=== PATIENT | male | born 1960 | race Caucasian/White ===

== ENCOUNTER → 2016-11-29 | Outpatient (CLI) | payer OTHER | END | disposition home or self-care (01) | LOC: MW.CHUR 11:39 | PROVIDERS: ATTEND Urology | DX: N40.1 Benign prostatic hyperplasia with lower urinary tract symptoms (principal); R33.8 Other retention of urine | CPT/HCPCS: 36415; 51798; 81001; 84153 ==

== ENCOUNTER 2016-12-08 10:54 | Day surgery (SDC) | payer OTHER ==
[~2016-12-08 10:54] MED LIST: Lactated Ringers 1,000 ML IV SCH; Midazolam 1 MG/ML 2 ML SDV ONE; Propofol 200 MG/20 ML SDV ONE; Sodium Chloride 0.9% 10 ML Syringe FLUSH PRN; Sodium Chloride 0.9% 2.5 ML Syringe FLUSH PRN; fentaNYL 100 MCG/2 ML SDV ONE
--- NOTE | 2016-12-08 13:05 | PCM.PREANE ---
Preanesthetic Assessment - Anesthesia/Transfusion/Family Hx Anesthesia History: Prior Anesthesia Reaction Type of Anesthesia Reaction: Excessive Nausea/Vomiting Family History of Anesthesia Reaction: No Transfusion History: No Prior Transfusion(s) - Review of Systems General: No Symptoms Pulmonary: No Symptoms Cardiovascular: No Symptoms Gastrointestinal: No symptoms Neurological: No Symptoms Other: Reports: None - Physical Assessment NPO Status Date: 12/07/16 Height: 1.8 m Weight: 96.615 kg ASA Class: 2 Mental Status: Alert & Oriented x3 Airway Class: Mallampati = 1 Dentition: Reports: Normal Dentition ROM/Head Extension: Full Lungs: Clear to auscultation, Normal respiratory effort Cardiovascular: Regular Rate, Regular Rhythm - Allergies Allergies/Adverse Reactions: Allergies Allergy/AdvReac Type Severity Reaction Status Date / Time No Known Allergies Allergy Verified 12/06/16 08:27 - Acknowledgements Anesthesia Type Planned: MAC Pt an Appropriate Candidate for the Planned Anesthesia: Yes Alternatives and Risks of Anesthesia Discussed w Pt/Guardian: Yes Pt/Guardian Understands and Agrees with Anesthesia Plan: Yes PreAnesthesia Questionnaire HEENT History: Reports: Other (see below) Other HEENT History: wears glasses Respiratory History: Reports: Asthma, Other (see below) Other Respiratory History: sports induced asthma Gastrointestinal History: Reports: GERD Genitourinary History: Musculoskeletal History: Reports: Osteoarthritis Other Musculoskeletal History: hx fx finger Psychiatric History: Reports: Other (see below) Other Psychiatric History: mood disorder, takes lamotrigine for this - Past Surgical History Head Surgeries/Procedures: Reports: None Musculoskeletal Surgical History: Reports: Arthroscopic knee, Shoulder surgery - SUBSTANCE USE Smoking Status *Q: Never Smoker Recreational Drug Use History: No - HOME MEDS Home Medications: Home Meds Omeprazole 1 tab PO DAILY 12/06/16 [History] lamoTRIgine 2 tab PO DAILY 12/06/16 [History] - CURRENT (IN HOUSE) MEDS Current Meds: Current Medications Lactated Ringer's (Ringers, Lactated) 1,000 mls @ 125 mls/hr IV ASDIRECTED MARLYN Sodium Chloride (Saline Flush) 10 ml FLUSH ASDIRECTED PRN PRN Reason: Keep Vein Open Sodium Chloride (Saline Flush) 2.5 ml FLUSH ASDIRECTED PRN PRN Reason: Keep Vein Open Discontinued Medications Fentanyl (Sublimaze) Confirm Administered Dose 100 mcg .ROUTE .STK-MED ONE Stop: 12/08/16 07:00 Midazolam HCl (Versed 1 Mg/Ml) Confirm Administered Dose 2 mg .ROUTE .STK-MED ONE Stop: 12/08/16 07:00 Propofol (Diprivan 20 Ml) Confirm Administered Dose 400 mg .ROUTE .STK-MED ONE Stop: 12/08/16 07:00 Preanesthetic Assessment - ANESTHESIA/TRANSFUSION/FAMILY HX Family History of Anesthesia Reaction: No - PHYSICAL ASSESSMENT Height: 1.8 m Weight: 96.615 kg - ALLERGIES Allergies/Adverse Reactions: Allergies Allergy/AdvReac Type Severity Reaction Status Date / Time No Known Allergies Allergy Verified 12/06/16 08:27
--- NOTE | 2016-12-08 14:19 | PCM.OPNOTE ---
- General Post-Op/Procedure Note Date of Surgery/Procedure: 12/08/16 Operative Procedure(s): screening colonoscopy Findings: normal colon Pre Op Diagnosis: screening colonoscopy Post-Op Diagnosis: normal colon Anesthesia Technique: MAC Primary Surgeon: Blanca Barajas Condition: Good
[2016-12-08 15:12] VITALS: BP 102/70
--- NOTE | 2016-12-08 15:55 | PCM.POSTAN ---
POST ANESTHESIA ASSESSMENT - MENTAL STATUS Mental Status: alert, oriented - RESPIRATORY Respiratory Status: respiratory rate WNL, airway patent, O2 saturation stable - CARDIOVASCULAR CV Status: pulse rate WNL, blood pressure stable - GASTROINTESTINAL GI Status: no symptoms - POST OP HYDRATION Hydration Status: adequate & stable
--- NOTE | 2016-12-08 15:56 | PCM48HPAN ---
Post Anesthesia Note - EVALUATION WITHIN 48HRS OF ANESTHETIC Vital Signs in Normal Range: Yes Patient Participated in Evaluation: Yes Respiratory Function Stable: Yes Airway Patent: Yes Cardiovascular Function Stable: Yes Hydration Status Stable: Yes Pain Control Satisfactory: Yes Nausea and Vomiting Control Satisfactory: Yes Mental Status Recovered: Yes
--- NOTE | 2016-12-08 22:31 | OR ---
SURGEON: HERMAN LEA MD DATE OF PROCEDURE: 12/08/2016 PREOPERATIVE DIAGNOSIS: Screening colonoscopy. POSTOPERATIVE DIAGNOSIS: Screening colonoscopy. PROCEDURE PERFORMED: Colonoscopy. INSTRUMENT USED: Olympus colonoscope. ANESTHESIA: MAC. EXTENT OF EXAM: To the cecum. PREPARATION: Fair. LIMITATIONS: None. INDICATIONS FOR EXAMINATION: The patient is a 55-year-old male, who presents for his first time screening colonoscopy. The patient and I discussed the procedure as well as expected perioperative course. We discussed the risks, including bleeding, infection, or damage to surrounding structures, including perforation. The patient verbalized understanding and wishes to proceed. PROCEDURE IN DETAIL: The patient was brought into the endoscopy suite and placed in left lateral decubitus position. A time-out was completed verifying the patient's name, age, date of , allergies, and procedure to be performed. Monitored anesthesia care was induced and continuous oxygen was provided via nasal cannula throughout the procedure. After adequate sedation was achieved, a digital rectal exam was performed. The examination was within normal limits. A well lubricated colonoscope was then inserted in the rectum and advanced under direct visualization to the level of cecum. The cecum was identified by both visual and anatomic landmarks. A photograph was taken of the cecal cap as well as retroflexing the scope within the cecum. The scope was then straightened out and fully withdrawn while examining the color, texture, anatomy, and integrity of mucosa from the cecum to the anal canal. The findings were consistent with normal colonic mucosa. The scope was brought into the rectum and retroflexed to allow visualization of the anal canal opening. This appeared normal and a photograph was taken. The scope was straightened out and removed from the patient. The cecum to anus time was 9 minutes. The patient was then transferred to the recovery room in stable condition. ENDOSCOPIC DIAGNOSIS: Normal colonoscopy. RECOMMENDATIONS: Follow up in clinic in 10 years. JUSTIN / ALTAGRACIA /[id number]
== END 2016-12-08 15:10 | disposition home or self-care (01) ==
LOC: MW.SDS 10:54
PROVIDERS: ATTEND Surgery
PROC: 0DJD8ZZ Inspection of Lower Intestinal Tract, Via Natural or Artificial Opening Endoscopic (ICD-10-PCS; principal; 2016-12-08)
DX: Z12.11 Encounter for screening for malignant neoplasm of colon (principal); N40.1 Benign prostatic hyperplasia with lower urinary tract symptoms; R33.8 Other retention of urine; K21.9 Gastro-esophageal reflux disease without esophagitis; G40.909 Epilepsy, unspecified, not intractable, without status epilepticus; J45.909 Unspecified asthma, uncomplicated; Z79.899 Other long term (current) drug therapy; Z98.890 Other specified postprocedural states
CPT/HCPCS: 45378; J2250; J3010; J7120; J2704

== ENCOUNTER 2016-12-09 09:11 | Emergency (ER) | payer OTHER ==
[2016-12-09] MEDS ORDERED: Sodium Chloride 0.9% 10 ML Syringe FLUSH PRN (09:34)
[2016-12-09] MEDS ORDERED: Sodium Chloride 0.9% 2.5 ML Syringe FLUSH PRN (09:34)
--- NOTE | 2016-12-09 09:39 | EDM.PDOC ---
ED HPI GENERAL MEDICAL PROBLEM - General Chief Complaint: Fever Stated Complaint: VOMITING Time Seen by Provider: 12/09/16 09:14 - History of Present Illness INITIAL COMMENTS - FREE TEXT/NARRATIVE: HISTORY AND PHYSICAL: History of present illness: The patient is a 55-year-old male who presents with complaints of fever that started yesterday about 5 PM after he had a screening colonoscopy performed yesterday morning. The patient states that the bowel prep was uneventful and his procedure was also uneventful and he felt fine at the time of discharge from same-day surgery. He went home ate a meal and then around 5:00 at a temp of 104 and had one episode of vomiting. Since that time he has had no nausea no vomiting no diarrhea and no chest pain shortness of breath cough runny nose sore throat or headache. The patient states that he would take Tylenol his fever would come down and then it would spike again. The patient denies any bodyaches or any complaints at all and says that he did not have his fever he would not even be here. He has had some dysuria but that occurred before the procedure. He has no flank pain or back pain. He has no rashes and he did not get his flu shot this year. Patient states that since the one episode of vomiting last evening he's been eating and drinking normally without issues the patient absolutely denies any abdominal distention or abdominal pain. Patient states he last took Tylenol about 2 hours ago Review of systems: As per history of present illness and below otherwise all systems reviewed and negative. Past medical history: As per history of present illness and as reviewed below otherwise noncontributory. Surgical history: As per history of present illness and as reviewed below otherwise noncontributory. Social history: No reported history of drug or alcohol abuse. Family history: As per history of present illness and as reviewed below otherwise noncontributory. Physical exam: General: Well-developed well-nourished man who is nontoxic and vital signs have been reviewed by me. HEENT: Atraumatic, normocephalic, pupils reactive, negative for conjunctival pallor or scleral icterus, mucous membranes moist, throat clear, neck supple, nontender, trachea midline. No cervical adenopathy, nuchal rigidity Lungs: Clear to auscultation, breath sounds equal bilaterally, chest nontender. Heart: S1S2, regular, negative for clicks, rubs, or JVD. Abdomen: Soft, nondistended, nontender. Bowel sounds are slightly hypoactive and there is some tympany in the upper abdomen on percussion but there is no tenderness rebound or guarding. Negative for masses or hepatosplenomegaly. Negative for costovertebral tenderness. Pelvis: Stable nontender. Genitourinary: Deferred. Rectal: Deferred. Extremities: Atraumatic, negative for cords or calf pain. Neurovascular unremarkable. Neuro: Awake, alert, oriented. Cranial nerves II through XII unremarkable. Cerebellum unremarkable. Motor and sensory unremarkable throughout. Exam nonfocal. Diagnostics: CBC CMP lactic acid UA urine culture blood culture influenza swab chest x-ray and abdominal films Therapeutics: IV fluids, rocephin I have discussed all testing results with the patient and offered him admission for his WBC count and his pneumonia. The patient is declining admission at this time and would like to try outpatient treatment and follow up with clinic doctor. He is aware of my concerns and accepts those and says he will return if the symptoms worsen or if he continues to have fevers. I will give him a dose of Rocephin here and send him home on Cefdnir. The patient is also aware of his elevated bilirubin, which is isolated, and the need to get that followed up. Impression: Fever/leukocytosis, early left lower lobe pneumonia asymptomatic Definitive disposition and diagnosis as appropriate pending reevaluation and review of above. 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 - Related Data Allergies Allergy/AdvReac Type Severity Reaction Status Date / Time No Known Allergies Allergy Verified 12/09/16 09:28 Home Meds: Home Meds Omeprazole 20 mg PO DAILY 12/06/16 [History] lamoTRIgine 400 mg PO DAILY 12/06/16 [History] Past Medical History HEENT History: Reports: Other (see below) Other HEENT History: wears glasses Respiratory History: Reports: Asthma, Other (see below) Other Respiratory History: sports induced asthma Gastrointestinal History: Reports: GERD Musculoskeletal History: Reports: Osteoarthritis Other Musculoskeletal History: hx fx finger Psychiatric History: Reports: Other (see below) Other Psychiatric History: mood disorder, takes lamotrigine for this - Past Surgical History Head Surgeries/Procedures: Reports: None Musculoskeletal Surgical History: Reports: Arthroscopic knee, Shoulder surgery Social & Family History - Tobacco Use Smoking Status *Q: Never Smoker - Recreational Drug Use Recreational Drug Use: No ED ROS GENERAL - Review of Systems Review Of Systems: ROS reveals no pertinent complaints other than HPI. ED EXAM, GENERAL - Physical Exam Exam: See Below (See dictation) Course - Vital Signs Last Recorded V/S: Last Vital Signs Temp 36.6 C 12/09/16 09:15 Pulse 88 12/09/16 09:15 Resp 18 12/09/16 09:15 BP 121/78 12/09/16 09:15 Pulse Ox 94 L 12/09/16 09:15 - Orders/Labs/Meds Orders: Active Orders 24 hr Category Date Time Status CULTURE BLOOD [BC] Stat Lab 12/09/16 09:47 Received CULTURE BLOOD [BC] Stat Lab 12/09/16 09:58 Received CULTURE URINE [RM] Stat Lab 12/09/16 10:27 Received Sodium Chloride 0.9% [Saline Flush] Med 12/09/16 09:34 Active 10 ml FLUSH ASDIRECTED PRN Sodium Chloride 0.9% [Saline Flush] Med 12/09/16 09:34 Active 2.5 ml FLUSH ASDIRECTED PRN cefTRIAXone [Rocephin in Dextrose,Iso-Osm 2 GM/50 ML] 2 Med 12/09/16 10:59 Ordered gm Premix Bag 1 bag IV ONETIME Blood Culture x2 Reflex Set [OM.PC] Stat Oth 12/09/16 09:34 Ordered Saline Lock Insert [OM.PC] Stat Oth 12/09/16 09:34 Ordered Medication Orders Sodium Chloride (Saline Flush) 10 ml FLUSH ASDIRECTED PRN PRN Reason: Keep Vein Open Sodium Chloride (Saline Flush) 2.5 ml FLUSH ASDIRECTED PRN PRN Reason: Keep Vein Open Labs: Laboratory Tests 12/09/16 12/09/16 12/09/16 Range/Units 09:47 09:47 09:47 WBC 20.41 H (4.0-11.0) K/uL RBC 5.26 (4.50-5.90) M/uL Hgb 14.7 (13.0-17.0) g/dL Hct 44.1 (38.0-50.0) % MCV 83.8 (80.0-98.0) fL MCH 27.9 (27.0-32.0) pg MCHC 33.3 (31.0-37.0) g/dL RDW Std Deviation 38.7 (28.0-62.0) fl RDW Coeff of [place] 13 (11.0-15.0) % Plt Count 199 (150-400) K/uL MPV 10.10 (7.40-12.00) fL Add Manual Diff YES Neutrophils % (Manual) 72 (48.0-80.0) % Band Neutrophils % 11 % Lymphocytes % (Manual) 14 L (16.0-40.0) % Monocytes % (Manual) 2 (0.0-15.0) % Eosinophils % (Manual) 1 (0.0-7.0) % Nucleated RBC % 0.0 /100WBC Absolute Seg Neuts 14.7 Band Neutrophils # 2.2 Lymphocytes # (Manual) 2.9 Monocytes # (Manual) 0.4 Eosinophils # (Manual) 0.2 Nucleated RBCs # 0 K/uL Lactate 0.9 (0.20-2.00) mmol/L Sodium 137 (136-146) mmol/L Potassium 3.7 (3.5-5.1) mmol/L Chloride 108 (98-110) mmol/L Carbon Dioxide 20 L (21-31) mmol/L BUN 19 (6.0-23.0) mg/dL Creatinine 1.2 (0.6-1.5) mg/dL Est Cr Clr Drug Dosing 74.95 mL/min Estimated GFR (MDRD) > 60.0 ml/min Glucose 109 (60-110) mg/dL Calcium 9.4 (8.8-10.8) mg/dL Total Bilirubin 2.2 H (0.1-1.5) mg/dL AST 19 (5-40) IU/L ALT 24 (8-54) IU/L Alkaline Phosphatase 68 (40-150) Total Protein 6.8 (6.0-8.0) g/dL Albumin 4.0 (3.5-5.0) g/dL Globulin 2.8 (2.0-3.5) g/dL Albumin/Globulin Ratio 1.4 (1.3-2.8) Urine Color Urine Appearance Urine pH (5.0-8.0) Ur Specific [place] (1.001-1.035) Urine Protein (NEGATIVE) mg/dL Urine Glucose (UA) (NEGATIVE) mg/dL Urine Ketones (NEGATIVE) mg/dL Urine Occult Blood (NEGATIVE) Urine Nitrite (NEGATIVE) Urine Bilirubin (NEGATIVE) Urine Urobilinogen (<2.0) EU/dL Ur Leukocyte Esterase (NEGATIVE) Urine RBC (0-2/HPF) Urine WBC (0-5/HPF) Ur Epithelial Cells (NONE-FEW) Amorphous Sediment (NEGATIVE) Urine Bacteria (NEGATIVE) 12/09/16 Range/Units 10:27 WBC (4.0-11.0) K/uL RBC (4.50-5.90) M/uL Hgb (13.0-17.0) g/dL Hct (38.0-50.0) % MCV (80.0-98.0) fL MCH (27.0-32.0) pg MCHC (31.0-37.0) g/dL RDW Std Deviation (28.0-62.0) fl RDW Coeff of [place] (11.0-15.0) % Plt Count (150-400) K/uL MPV (7.40-12.00) fL Add Manual Diff Neutrophils % (Manual) (48.0-80.0) % Band Neutrophils % % Lymphocytes % (Manual) (16.0-40.0) % Monocytes % (Manual) (0.0-15.0) % Eosinophils % (Manual) (0.0-7.0) % Nucleated RBC % /100WBC Absolute Seg Neuts Band Neutrophils # Lymphocytes # (Manual) Monocytes # (Manual) Eosinophils # (Manual) Nucleated RBCs # K/uL Lactate (0.20-2.00) mmol/L Sodium (136-146) mmol/L Potassium (3.5-5.1) mmol/L Chloride (98-110) mmol/L Carbon Dioxide (21-31) mmol/L BUN (6.0-23.0) mg/dL Creatinine (0.6-1.5) mg/dL Est Cr Clr Drug Dosing mL/min Estimated GFR (MDRD) ml/min Glucose (60-110) mg/dL Calcium (8.8-10.8) mg/dL Total Bilirubin (0.1-1.5) mg/dL AST (5-40) IU/L ALT (8-54) IU/L Alkaline Phosphatase (40-150) Total Protein (6.0-8.0) g/dL Albumin (3.5-5.0) g/dL Globulin (2.0-3.5) g/dL Albumin/Globulin Ratio (1.3-2.8) Urine Color YELLOW Urine Appearance CLEAR Urine pH 6.0 (5.0-8.0) Ur Specific [place] 1.010 (1.001-1.035) Urine Protein NEGATIVE (NEGATIVE) mg/dL Urine Glucose (UA) NEGATIVE (NEGATIVE) mg/dL Urine Ketones NEGATIVE (NEGATIVE) mg/dL Urine Occult Blood NEGATIVE (NEGATIVE) Urine Nitrite NEGATIVE (NEGATIVE) Urine Bilirubin NEGATIVE (NEGATIVE) Urine Urobilinogen 0.2 (<2.0) EU/dL Ur Leukocyte Esterase NEGATIVE (NEGATIVE) Urine RBC NONE SEEN (0-2/HPF) Urine WBC 0-2 (0-5/HPF) Ur Epithelial Cells FEW (NONE-FEW) Amorphous Sediment RARE (NEGATIVE) Urine Bacteria RARE (NEGATIVE) Meds: Medications Generic Name Dose Route Start Last Admin Trade Name Freq PRN Reason Stop Dose Admin Sodium Chloride 10 ml 12/09/16 09:34 Saline Flush FLUSH ASDIRECTED PRN Keep Vein Open Sodium Chloride 2.5 ml 12/09/16 09:34 Saline Flush FLUSH ASDIRECTED PRN Keep Vein Open Departure - Departure Time of Disposition: 11:00 Disposition: Home, Self-Care 01 Condition: good Clinical Impression: Pneumonia Qualifiers: Pneumonia type: due to unspecified organism Laterality: left Lung location: lower lobe of lung Qualified Code(s): J18.1 - Lobar pneumonia, unspecified organism Fever Qualifiers: Fever type: unspecified Qualified Code(s): R50.9 - Fever, unspecified Forms: ED Department Discharge Additional Instructions: The following information is given to patients seen in the emergency department who are being discharged to home. This information is to outline your options for follow-up care. We provide all patients seen in our emergency department with a follow-up referral. The need for follow-up, as well as the timing and circumstances, are variable depending upon the specifics of your emergency department visit. If you don't have a primary care physician on staff, we will provide you with a referral. We always advise you to contact your personal physician following an emergency department visit to inform them of the circumstance of the visit and for follow-up with them and/or the need for any referrals to a consulting specialist. The emergency department will also refer you to a specialist when appropriate. This referral assures that you have the opportunity for followup care with a specialist. All of these measure are taken in an effort to provide you with optimal care, which includes your followup. Under all circumstances we always encourage you to contact your private physician who remains a resource for coordinating your care. When calling for followup care, please make the office aware that this follow-up is from your recent emergency room visit. If for any reason you are refused follow-up, please contact the [facility] emergency department at and ask to speak to the emergency department charge nurse. [facility] Primary care- [place] [address] Please do not return to work until you are fever free, without medication, for 24 hours. Use Tylenol and ibuprofen for fevers and push hydration. Take antibiotics as directed with the first dose this afternoon. Please followup with the clinic for reevaluation and repeat blood work and chest x-ray and return to ER as needed and as discussed. - My Orders Last 24 Hours: My Active Orders 12/09/16 09:34 Sodium Chloride 0.9% [Saline Flush] 10 ml FLUSH ASDIRECTED PRN Sodium Chloride 0.9% [Saline Flush] 2.5 ml FLUSH ASDIRECTED PRN Blood Culture x2 Reflex Set [OM.PC] Stat Saline Lock Insert [OM.PC] Stat 12/09/16 09:47 CULTURE BLOOD [BC] Stat 12/09/16 09:58 CULTURE BLOOD [BC] Stat 12/09/16 10:27 CULTURE URINE [RM] Stat 12/09/16 10:59 cefTRIAXone [Rocephin in Dextrose,Iso-Osm 2 GM/50 ML] 2 gm Premix Bag 1 bag IV ONETIME - Assessment/Plan Last 24 Hours: My Active Orders 12/09/16 09:34 Sodium Chloride 0.9% [Saline Flush] 10 ml FLUSH ASDIRECTED PRN Sodium Chloride 0.9% [Saline Flush] 2.5 ml FLUSH ASDIRECTED PRN Blood Culture x2 Reflex Set [OM.PC] Stat Saline Lock Insert [OM.PC] Stat 12/09/16 09:47 CULTURE BLOOD [BC] Stat 12/09/16 09:58 CULTURE BLOOD [BC] Stat 12/09/16 10:27 CULTURE URINE [RM] Stat 12/09/16 10:59 cefTRIAXone [Rocephin in Dextrose,Iso-Osm 2 GM/50 ML] 2 gm Premix Bag 1 bag IV ONETIME
--- NOTE | 2016-12-09 09:58 | PCM.CONS ---
H&P History of Present Illness - General Date of Service: 12/09/16 Admit Problem/Dx: Fever Source of Information: Patient History Limitations: Reports: No limitations - History of Present Illness Initial Comments - Free Text/Narative: Patient is POD #1 from a screening colonoscopy. He did well immediately post operative and was discharged home. He ate pizza last evening and vomited afterwards. Overnight he had a fever and this morning he measured it. It was 103F. He denies abdominal pain, SOB, chest pain, nausea presently, headache or malaise. He took tylenol and the fever went away. Given the vomiting and fever he presented to the ED for workup. - Related Data Allergies/Adverse Reactions: Allergies Allergy/AdvReac Type Severity Reaction Status Date / Time No Known Allergies Allergy Verified 12/09/16 09:28 Home Medications: Home Meds Omeprazole 20 mg PO DAILY 12/06/16 [History] lamoTRIgine 400 mg PO DAILY 12/06/16 [History] Past Medical History HEENT History: Reports: Other (see below) Other HEENT History: wears glasses Respiratory History: Reports: Asthma, Other (see below) Other Respiratory History: sports induced asthma Gastrointestinal History: Reports: GERD Musculoskeletal History: Reports: Osteoarthritis Other Musculoskeletal History: hx fx finger Psychiatric History: Reports: Other (see below) Other Psychiatric History: mood disorder, takes lamotrigine for this - Past Surgical History Head Surgeries/Procedures: Reports: None Musculoskeletal Surgical History: Reports: Arthroscopic knee, Shoulder surgery Social & Family History - Family History Family Medical History: Noncontributory - Tobacco Use Smoking Status *Q: Never Smoker - Recreational Drug Use Recreational Drug Use: No H&P Review of Systems - Review of Systems: Review Of Systems: ROS reveals no pertinent complaints other than HPI. Exam - Exam Exam: See Below - Vital Signs Vital Signs: Last Vital Signs Temp 36.6 C 12/09/16 09:15 Pulse 88 12/09/16 09:15 Resp 18 12/09/16 09:15 BP 121/78 12/09/16 09:15 Pulse Ox 94 L 12/09/16 09:15 Weight: 94.8 kg - Exam General: alert, oriented HEENT: Conjunctiva clear, EOMI, Hearing intact, Mucosa moist & pink, Pupils equal, Pupils reactive Neck: supple, trachea midline Lungs: Clear to auscultation, Normal respiratory effort Cardiovascular: regular rate, regular rhythm Abdomen: normal bowel sounds, soft Extremities: normal inspection Consult PN Assessment/Plan POD#: 1 Procedures: Procedures ASSAY OF PSA TOTAL (11/29/16) MRI JOINT UPR EXTREM W/O DYE (08/12/16) ROUTINE VENIPUNCTURE (11/29/16) URINALYSIS AUTO W/SCOPE (11/29/16) US URINE CAPACITY MEASURE (11/29/16) X-RAY EXAM OF SHOULDER (08/10/16) (1) Fever SNOMED Code(s): 014894504 Code(s): R50.9 - FEVER, UNSPECIFIED Current Visit: Yes Problem List Initiated/Reviewed/Updated: Yes Plan: -Patient has no signs of an acute abdomen at this time. He may be bacteremic from his procedure. Appreciate septic work up by ED physician. Will follow up on labs and imaging. If WBC is within normal limits, vitals are stable, and blood cultures show no evidence of bacteria, he can be discharged home with follow up as scheduled with me in 1-2 weeks. Since he does not appear toxic, he can be treated as an outpatient if his WBC is elevated or his blood cultures return positive. I would treat him with flagyl and cipro for two weeks.
[2016-12-09 10:34] LABS: CHLORIDE,CL 108 mmol/L (98-110); SODIUM,NA 137 mmol/L (136-146)
--- NOTE | 2016-12-09 10:38 | CR ---
EXAMINATION: Two-view chest (PA and Lateral views). HISTORY: Shortness of breath. FINDINGS: The trachea is midline. The cardiomediastinal silhouette is within normal limits. There is mild patc hy infiltrate within the left lower lobe. No pleural effusion or pneumothorax. Osseous structures appear unremarkable. IMPRESSION: Patchy infiltrate within the left lower lobe, possibly developing pneumonia.
--- NOTE | 2016-12-09 10:43 | CR ---
EXAMINATION: Abdomen HISTORY: Pain COMPARISON: None TECHNIQUE: AP and upright views FINDINGS: There is a moderate amount of stool and gas throughout the colon. No dilated loops of smal l bowel. No organomegaly. No abnormal calcifications project over the kidneys. The visualized osseou s structures appear normal. IMPRESSION: 1. Moderate stool within the right hemicolon, possibly representing constipation.
[2016-12-09] MEDS ORDERED: cefTRIAXone 2 GM in Premix Bag 1 BAG IV ONE (10:59)
[2016-12-09 11:48] VITALS: BP 106/73
== END 2016-12-09 11:59 | disposition home or self-care (01) ==
LOC: MW.ED 09:11
DX: J18.1 Lobar pneumonia, unspecified organism (principal); R50.9 Fever, unspecified; K21.9 Gastro-esophageal reflux disease without esophagitis; Z98.890 Other specified postprocedural states; Z79.899 Other long term (current) drug therapy
CPT/HCPCS: 36415; 71020; 74020; 80053; 81001; 83605; 85025; 87040; 87086; 87804; 96365; 99284; J0696; 99283